=== PATIENT | female | born 1980 ===

== ENCOUNTER 2021-09-10 05:56 | Day surgery (SDC) | payer OTHER ==
[2021-09-10] MEDS ORDERED: NEXIUM 24HR20 MG PO (09:07)
== END 2021-09-10 10:30 | disposition home or self-care (01) ==
LOC: AMB-ENDOS 05:56
PROVIDERS: ATTEND Surgery
DX: D13.1 Benign neoplasm of stomach (principal); Z20.822 Contact with and (suspected) exposure to COVID-19